=== PATIENT | female | born 1975 | race Two or more races ===

== ENCOUNTER 2019-06-09 06:00 | Day surgery (SDC) | payer OTHER | END 2019-06-09 13:10 | disposition home or self-care (01) | LOC: AMB-ENDOS 06:00 → ADM 13:15 | DX: K62.89 Other specified diseases of anus and rectum (principal); K64.1 Second degree hemorrhoids; Z12.11 Encounter for screening for malignant neoplasm of colon ==

== ENCOUNTER 2019-10-17 09:51 | Outpatient (CLI) | payer OTHER | END 2019-10-17 15:00 | disposition home or self-care (01) | LOC: LAB 09:51 | PROVIDERS: ATTEND General Practice | DX: R10.2 Pelvic and perineal pain (principal); R10.13 Epigastric pain ==

== ENCOUNTER 2020-01-19 19:40 | Emergency (ER) | payer OTHER ==
[~2020-01-19] VITALS: Ht 160 cm; Wt 81.6 kg
[2020-01-19] MEDS ORDERED: PANADOL (20:02)
== END 2020-01-20 00:59 | disposition home or self-care (01) ==
LOC: ER 19:40
DX: S00.81XA Abrasion of other part of head, initial encounter (principal); W18.2XXA Fall in (into) shower or empty bathtub, initial encounter; Y93.E1 Activity, personal bathing and showering; Y92.098 Other place in other non-institutional residence as the place of occurrence of the external cause; Y99.8 Other external cause status

== ENCOUNTER 2020-10-19 02:03 | Emergency (ER) | payer OTHER ==
[~2020-10-19] VITALS: Ht 160 cm; Wt 74.8 kg
[~2020-10-19 02:03] MED LIST: PANADOL
[2020-10-19] MEDS ORDERED: CRESTOR20 MG (02:10)
== END 2020-10-19 06:04 | disposition home or self-care (01) ==
LOC: ER 02:03
DX: I10 Essential (primary) hypertension (principal)

== ENCOUNTER 2020-12-02 10:19 | Emergency (ER) | payer OTHER ==
[~2020-12-02] VITALS: Ht 160 cm; Wt 70.3 kg
[~2020-12-02 10:19] MED LIST changes: +CRESTOR20 MG
== END 2020-12-02 17:08 ==
LOC: ER 10:19
DX: R42 Dizziness and giddiness (principal)

== ENCOUNTER 2024-07-28 15:17 | Outpatient (CLI) | payer OTHER | END 2024-07-28 15:19 | disposition home or self-care (01) | LOC: SONOGRAMA 15:17 | PROVIDERS: ATTEND Pathology Anatomic Pathology & Clinical Pathology | DX: D34 Benign neoplasm of thyroid gland (principal); E04.2 Nontoxic multinodular goiter ==